=== PATIENT | male | born 1950 | race Asian ===

== ENCOUNTER 2018-10-28 19:00 | Inpatient (IN) | payer MEDICARE, OTHER ==
[~2018-10-28] VITALS: Ht 180.3 cm; Wt 62.3 kg
[2018-10-28] MEDS ORDERED: VITAMIN D250000 UNI1 ORAL (19:04)
[2018-10-28] MEDS ORDERED: CIPROFLOXA250 MG/5 M PO (19:04)
[2018-10-28] MEDS ORDERED: ISOSORBIDE MONO20 MG PO (19:04)
[2018-10-28 19:05] VITALS: BP 120/81
--- NOTE | 2018-10-28 19:05 | NUR ---
ED Nurse Note: brought in by RA 4 from restaurant due to AMS and syncope. Denies trauma and CP. BS 130. NS 300ml given by EMS; low BP;. RA 87% -> NC 4L/min and O2 sat of 93%. as per family member statment: the pt was as a dinner outing with family and the family stated the pt just felt "woozy and a little out of it." the family denies any loss of conciousness and denies head trauma. the family just thought it in the pt best intrest to call EMS. upon traig, pt was responsive, blood pressure is 120/80. the pt is able to talk back if asked any questions.
--- NOTE | 2018-10-28 19:10 | Emergency Room Report ---
History of Present Illness General Chief Complaint: Altered Mental Status Source: Patient, EMS Present Illness HPI This is a 68-year-old male with multiple histories including Parkinson, renal disease, high blood pressure to name a few. He presents with chief complaint of syncope. He was at a restaurant. He hasn't eaten yet. He stood up and became disoriented and unresponsive. Family sat him down and it did not improve. This lasted about 5-10 minutes. Per family he was unresponsive. No diaphoresis. Per EMS, initial blood pressure was systolic nausea no vomiting. No fever or chills. He was admitted last month for sepsis and UTI. Allergies: Coded Allergies: No Known Allergies (Unverified , 10/28/18) Patient History Past Medical History: see triage record, old chart reviewed, DM, HTN, renal disease Past Surgical History: other Pertinent Family History: none Social History: Denies: smoking Immunizations: other Reviewed Nursing Documentation: PMH: Agreed; PSxH: Agreed Nursing Documentation-PMH Past Medical History: No History, Except For Hx Hypertension: Yes Review of Systems Constitutional: Reports: weakness Eye: Denies: eye pain, blurred vision ENT: Denies: ear pain, nose congestion, throat swelling Respiratory: Denies: cough, shortness of breath Cardiovascular: Denies: chest pain, palpitations Gastrointestinal: Denies: abdominal pain, diarrhea, nausea, vomiting Musculoskeletal: Denies: back pain, joint pain Skin: Denies: rash Neurological: Denies: headache, numbness Endocrine: Denies: increased thirst, increased urine Hematologic/Lymphatic: Denies: easy bruising All Other Systems: negative except mentioned in HPI Physical Exam Vital Signs Date Time Temp Pulse Resp B/P (MAP) Pulse Ox O2 Delivery O2 Flow Rate FiO2 10/28/18 18:55 98.1 76 16 89/47 90 Room Air vitals with hypotension and hypoxia Sp02 EP Interpretation: reviewed, abnormal General Appearance: no apparent distress, mild distress, lethargic, Chronically Ill Head: normocephalic, atraumatic Eyes: bilateral eye PERRL, bilateral eye EOMI ENT: hearing grossly normal, normal pharynx Neck: full range of motion, supple, no meningismus Respiratory: chest non-tender, lungs clear, normal breath sounds Cardiovascular #1: regular rate, rhythm, no murmur Gastrointestinal: normal bowel sounds, non tender, no mass, no organomegaly, no bruit, non-distended Musculoskeletal: back normal, normal range of motion Neurologic: grossly normal Skin: warm/dry Medical Decision Making Diagnostic Impression: Primary Impression: Syncope Qualified Codes: R55 - Syncope and collapse Additional Impressions: CHF exacerbation Qualified Codes: I50.9 - Heart failure, unspecified Altered mental status Qualified Codes: R41.82 - Altered mental status, unspecified CKD (chronic kidney disease) Qualified Codes: N18.9 - Chronic kidney disease, unspecified ER Course Patient presents with prolonged syncope. Differential include TIA/CVA, arrhythmia, PE, dissection to name a few. He is improved. CT scan negative. No evidence of bleed. He does have renal insufficiency but this may be at baseline. Because of his multiple medical problems, age and risk factors, will admit for further monitoring. I discussed the case with Dr. Jon who will admit. EKG Diagnostic Results Rate: normal Rhythm: NSR ST Segments: other - Bifascicular block Rhythm Strip Diag. Results Rhythm Strip Time: 19:09 EP Interpretation: yes Rate: 77 Rhythm: NSR, no PVC's, no ectopy Chest X-Ray Diagnostic Results Chest X-Ray Diagnostic Results : Chest X-Ray Ordered: Yes # of Views/Limited/Complete: 1 View Indication: Shortness of Breath EP Interpretation: Yes Interpretation: no consolidation, no effusion, no pneumothorax, no acute cardiopulmonary disease Impression: No acute disease Electronically Signed by: Jean Lester MD CT/MRI/US Diagnostic Results CT/MRI/US Diagnostic Results : Imaging Test Ordered: CT head Impression Neg per radiologist Last Vital Signs Date Time Temp Pulse Resp B/P (MAP) Pulse Ox O2 Delivery O2 Flow Rate FiO2 10/28/18 18:55 98.1 76 16 89/47 90 Room Air Status: improved Jean Lester MD Oct 28, 2018 19:10
[2018-10-28 19:18] VITALS: BP 119/81
--- NOTE | 2018-10-28 19:31 | Diagnostic Imaging Report ---
EXAM: XR Chest, 1 View CLINICAL HISTORY: SYNCOPE TECHNIQUE: Frontal view of the chest. COMPARISON: No relevant prior studies available. FINDINGS: Lungs: The lungs are grossly clear. Pleural space: No plain film evidence for pneumothorax. Heart: Mild prominence of the cardiomediastinal silhouette which may at least partly be related to the portable technique. Mediastinum: See above. Bones/joints: Degenerative changes of the acromioclavicular joints. IMPRESSION: Mild prominence of the cardiomediastinal silhouette which may at least partly be related to the portable technique.
--- NOTE | 2018-10-28 19:42 | Diagnostic Imaging Report ---
EXAM: CT Head Without Intravenous Contrast CLINICAL HISTORY: AMS TECHNIQUE: Axial computed tomography images of the head/brain without intravenous contrast. CTDI is 0.15, 70.38 mGy and DLP is 1540 mGy-cm. One or more of the following dose reduction techniques were used: automated exposure control, adjustment of the mA and/or kV according to patient size, use of iterative reconstruction technique. COMPARISON: No relevant prior studies available. FINDINGS: Limitations: Evaluation is somewhat limited secondary to artifact. Brain: Areas of decreased density are seen in the white matter which are nonspecific but are likely related to small vessel ischemic changes. Cerebral atrophy. No hemorrhage. Ventricles: Unremarkable. No ventriculomegaly. Bones/joints: Unremarkable. No acute fracture. Soft tissues: Unremarkable. Sinuses: Unremarkable as visualized. No acute sinusitis. Mastoid air cells: Unremarkable as visualized. No mastoid effusion. IMPRESSION: No definite CT evidence for acute intracranial abnormality. Cerebral atrophy with probable small vessel ischemic changes.
[2018-10-28 19:53] LABS: APPEARANCE,URINE CLEAR; BILIRUBIN, URINE NEGATIVE (NEGATIVE); COLOR,URINE PALE YELLOW; GLUCOSE, URINE (UA) NEGATIVE (NEGATIVE); KETONES,URINE NEGATIVE (NEGATIVE); LEUKOCYTE ESTERASE ,URINE NEGATIVE (NEGATIVE); NITRITE,URINE NEGATIVE (NEGATIVE); PH,URINE 6.5 (4.5-8.0); PROTEIN,URINE NEGATIVE (NEGATIVE); UROBILINOGEN,URINE NORMAL MG/DL (0.0-1.0)
[2018-10-28 19:58] LABS: ANION GAP 12 mmol/L (5-15); BLOOD UREA NITROGEN 45 mg/dL (7-18); CARBON DIOXIDE 24 MMOL/L (21-32); CHLORIDE 104 MMOL/L (98-107); CREATININE 2.2 MG/DL (0.55-1.30); POTASSIUM 3.6 MMOL/L (3.5-5.1); SODIUM 140 MMOL/L (136-145)
[2018-10-28 20:05] LABS: BASOPHILS % (AUTO) 1.1 % (0.0-2.0); EOSINOPHILS % (AUTO) 5.9 % (0.0-3.0); HEMATOCRIT 33.2 % (42.0-52.0); MEAN CORPUSCULAR VOLUME 100 FL (80-99); MONOCYTES % (AUTO) 8.8 % (1.0-10.0); NEUTROPHILS % (AUTO) 79.2 % (45.0-75.0); PLATELET COUNT 159 K/UL (150-450); RED BLOOD COUNT 3.31 M/UL (4.70-6.10); RED CELL DISTRIBUTION WIDTH 11.4 % (11.6-14.8); WHITE BLOOD COUNT 8.4 K/UL (4.8-10.8)
[2018-10-28 20:12] LABS: ALANINE AMINOTRANSFERASE 9 U/L (12-78); ALBUMIN 3.2 G/DL (3.4-5.0); ALBUMIN/GLOBULIN RATIO 0.8 (1.0-2.7); ALKALINE PHOSPHATASE 51 U/L (46-116); ASPARTATE AMINO TRANSFERASE 18 U/L (15-37); BILIRUBIN,TOTAL 0.5 MG/DL (0.2-1.0); CKMB 1.3 NG/ML (0.0-3.6); CREATINE KINASE 69 U/L (26-308)
[2018-10-28 21:20] VITALS: BP 140/80
[2018-10-28 22:35] VITALS: BP_SYST 136; BP_SYST 140; BP_SYST 170; BP_DIAS 75; BP_DIAS 81; BP_DIAS 90
--- NOTE | 2018-10-28 22:35 | NUR ---
ED Nurse Note: PT is Transfered to TELE to 207. RHEA TORRES recived report. pt had no belongings to be transfered with, all belongings had left with family members. pt is alert and oriented times 4. pt has no skin issues noted. all vital signs have been stable prior to transfer. MD and receving nurse is aware of pt status, conditions, order, and vital signs during transfer.
[2018-10-28 22:43] VITALS: BP 141/82
[2018-10-28 22:45] VITALS: BP 150/87
[2018-10-28] MEDS: D5NS 1,000 ML IV SCH (22:45)
--- NOTE | 2018-10-28 22:50 | NUR ---
NURSE NOTES: Received patient from [facility] FILM SOUND COORDINATOR. patient was brought to floor via gurney without incident. Placed patient on satellite project site monitor. Skin is clean and intact with no issues. All of patients belongings sent with family from ER. Orientated patient to room and unit. Patient performs in and out catheterization which i made [place] aware and was given orders to continue while here in the hospital. Bed is inlowest position with call light within reach. Will continue to monitor and follow plan of care.
[2018-10-29] VITALS: BP 126/76
[2018-10-29 04:00] VITALS: BP 158/73
--- NOTE | 2018-10-29 07:30 | NUR ---
NURSE NOTES: Received report from RHEA Wallace. Patient is in stable condition. No acute distress/SOB noted. Will continue plan of care.
--- NOTE | 2018-10-29 07:44 | NUR ---
HAND-OFF: Report given to Manuelito WILKERSON.
[2018-10-29 08:00] VITALS: BP 157/81
[2018-10-29] MEDS: Aspirin Baby 81mg NG SCH (09:33)
[2018-10-29] MEDS: Heparin 5000 units/ml inj SUBQ SCH ×2 (09:33→20:53)
[2018-10-29 09:35] LABS: ALANINE AMINOTRANSFERASE 11 U/L (12-78); ALBUMIN 3.1 G/DL (3.4-5.0); ALBUMIN/GLOBULIN RATIO 0.9 (1.0-2.7); ALKALINE PHOSPHATASE 47 U/L (46-116); ANION GAP 9 mmol/L (5-15); ASPARTATE AMINO TRANSFERASE 19 U/L (15-37); BILIRUBIN,TOTAL 0.4 MG/DL (0.2-1.0); BLOOD UREA NITROGEN 42 mg/dL (7-18); CALCIUM 8.5 MG/DL (8.5-10.1); CARBON DIOXIDE 27 MMOL/L (21-32); CHLORIDE 107 MMOL/L (98-107); SODIUM 143 MMOL/L (136-145)
--- NOTE | 2018-10-29 11:15 | History and Physical Report ---
DATE OF ADMISSION: 10/28/2018 CHIEF COMPLAINT: Syncope. HISTORY OF PRESENT ILLNESS: The patient is a pleasant 68-year-old male. He has a history of hypertensive heart disease, rheumatic heart disease, Parkinson disease, who presented from a restaurant after a syncopal episode. According to the patient, he was at , he has just had a martini and was ordering food when he had a syncopal episode. He awoke in the ambulance. He denies any chest pain or shortness of breath, but when he awoke he did have some neck pain. It is since then resolved. On evaluation in the emergency room at [facility], he had a CAT scan of the head that showed no evidence of any stroke or bleed. His laboratories are significant for creatinine of 2.2, elevated natriuretic peptide level of 2200. His troponin was 0.028. EKG showed a right bundle-branch block and a left anterior fascicular block. He is now admitted for further evaluation and care. PAST MEDICAL HISTORY: As above. PAST SURGICAL HISTORY: None. CURRENT MEDICATIONS: Reconciled and reviewed. ALLERGIES: None. FAMILY HISTORY: Significant for a father, who had nasopharyngeal carcinoma and a mother with cervical cancer. SOCIAL HISTORY: The patient has a 40-pack year of history of smoking, but quit over 20 years ago. Drinks socially. No drugs. REVIEW OF SYSTEMS: GENERAL: No fever or chills. HEENT: No headaches or visual changes. CARDIOPULMONARY: No chest pain or shortness of breath. GASTROINTESTINAL: No nausea or vomiting. GENITOURINARY: No urgency or frequency. MUSCULOSKELETAL: No joint pain or swelling. NEUROLOGIC: No evidence of seizures. PHYSICAL EXAMINATION: VITAL SIGNS: Temperature 98.4, pulse 61, respirations 20, and blood pressure 157/81. GENERAL: The patient is well-developed male, in no apparent distress. HEART: Regular rate and rhythm. LUNGS: Clear. ABDOMEN: Soft, nontender, and nondistended. EXTREMITIES: Without clubbing, cyanosis, or edema. LABORATORY AND DIAGNOSTIC DATA: Labs showed sodium 140, potassium 3.6, chloride 104, bicarb 24, BUN 45, creatinine 2.2. Troponin 0.028. Natriuretic peptide level 2500. White count 8, hemoglobin 11, hematocrit 33, platelets 159. Chest x-ray was clear. Head CT also was negative. ASSESSMENT: This is a pleasant male with history of Parkinson disease, history of rheumatic fever, hypertension, admitted with complaints of syncope, suspect vasovagal, cannot rule out some component of possible dehydration. PLAN: Monitor on telemetry. Cardiology consultation. Baby aspirin. We will check an echo and a carotid duplex. Check orthostatics. Gentle hydration. Follow up repeat troponin and creatinine. Plan of care was discussed with the patient at the bedside and he is in agreement. Franklin Jon M.D. DR: CHUCKIE JOB#: [id number] CC:
[2018-10-29] MEDS: D5NS 1,000 ML IV SCH (11:50)
[2018-10-29 12:00] VITALS: BP 182/80
[2018-10-29] MEDS ORDERED: MIRALAX17 G2 ORAL ×2 (13:39→14:05)
[2018-10-29] MEDS ORDERED: ISOSORBIDE MONO20 MG PO (13:55)
[2018-10-29] MEDS ORDERED: COREG6.25 MG ORAL (14:01)
[2018-10-29] MEDS ORDERED: FUROSEMIDE20 M1 ORAL (14:01)
[2018-10-29] MEDS ORDERED: LOSARTAN POTASS25 M1 PO (14:01)
[2018-10-29] MEDS ORDERED: FENOFIBRATE145 M1 ORAL (14:01)
[2018-10-29] MEDS ORDERED: AMANTADINE50 MG/5 ML ORAL (14:04)
[2018-10-29] MEDS ORDERED: AZILECT1 MG PO (14:04)
[2018-10-29] MEDS ORDERED: SIMVASTATIN20 MG ORAL (14:04)
[2018-10-29] MEDS ORDERED: Miralax 17gm pkt ORAL PRN (15:22)
[2018-10-29 16:00] VITALS: BP 165/78
[2018-10-29] MEDS ORDERED: Losartan 25mg tab ORAL SCH (17:00)
--- NOTE | 2018-10-29 17:13 | Cardiology Progress Note ---
Assessment/Plan Assessment/Plan The patient is seen and examined, full consult note will be dictated. Objective Last 24 Hour Vital Signs Date Time Temp Pulse Resp B/P (MAP) Pulse Ox O2 Delivery O2 Flow Rate FiO2 10/29/18 16:33 165/78 10/29/18 16:00 98.0 60 18 165/78 (107) 100 10/29/18 12:10 67 10/29/18 12:05 63 10/29/18 12:00 59 10/29/18 12:00 98.1 62 20 182/80 (114) 97 10/29/18 12:00 62 10/29/18 10:18 Nasal Cannula 2.0 10/29/18 08:00 65 10/29/18 08:00 98.4 61 20 157/81 (106) 99 10/29/18 06:46 60 10/29/18 04:43 70 68 77 10/29/18 04:00 78 10/29/18 04:00 96.8 70 18 158/73 (101) 99 10/29/18 00:00 78 10/29/18 00:00 96.9 92 18 126/76 (93) 95 10/28/18 23:57 Nasal Cannula 2.0 10/28/18 22:45 97.2 91 18 150/87 (108) 100 10/28/18 22:43 92 10/28/18 22:43 98.1 76 16 141/82 100 Nasal Cannula 5.0 10/28/18 22:35 98.1 74 16 170/90 100 Nasal Cannula 5.0 100 10/28/18 22:35 98.1 74 16 170/90 100 Nasal Cannula 5.0 100 140/81 136/75 10/28/18 21:59 170/90 10/28/18 21:20 98.1 74 16 140/80 100 Nasal Cannula 5.0 10/28/18 19:18 98.1 81 16 119/81 100 Nasal Cannula 5.0 10/28/18 19:05 76 16 Room Air 100 10/28/18 19:05 98.1 74 16 120/81 90 Room Air 10/28/18 18:55 98.1 76 16 89/47 90 Room Air Intake and Output 10/28/18 10/29/18 19:00 07:00 Output Total 1450 ml Balance -1450 ml Output Urine Total 1450 ml # Voids 1 Laboratory Tests Test 10/28/18 19:10 10/28/18 19:15 10/29/18 08:05 White Blood Count 8.4 K/UL (4.8-10.8) Red Blood Count 3.31 M/UL (4.70-6.10) L Hemoglobin 11.0 G/DL (14.2-18.0) L Hematocrit 33.2 % (42.0-52.0) L Mean Corpuscular Volume 100 FL (80-99) H Mean Corpuscular Hemoglobin 33.1 PG (27.0-31.0) H Mean Corpuscular Hemoglobin Concent 33.0 G/DL (32.0-36.0) Red Cell Distribution Width 11.4 % (11.6-14.8) L Platelet Count 159 K/UL (150-450) Mean Platelet Volume 5.4 FL (6.5-10.1) L Neutrophils (%) (Auto) 79.2 % (45.0-75.0) H Lymphocytes (%) (Auto) 5.0 % (20.0-45.0) L Monocytes (%) (Auto) 8.8 % (1.0-10.0) Eosinophils (%) (Auto) 5.9 % (0.0-3.0) H Basophils (%) (Auto) 1.1 % (0.0-2.0) Prothrombin Time 11.0 SEC (9.30-11.50) Prothromb Time International Ratio 1.0 (0.9-1.1) Activated Partial Thromboplast Time 29 SEC (23-33) Sodium Level 140 MMOL/L (136-145) 143 MMOL/L (136-145) Potassium Level 3.6 MMOL/L (3.5-5.1) 3.0 MMOL/L (3.5-5.1) L Chloride Level 104 MMOL/L (98-107) 107 MMOL/L (98-107) Carbon Dioxide Level 24 MMOL/L (21-32) 27 MMOL/L (21-32) Anion Gap 12 mmol/L (5-15) 9 mmol/L (5-15) Blood Urea Nitrogen 45 mg/dL (7-18) H 42 mg/dL (7-18) H Creatinine 2.2 MG/DL (0.55-1.30) H 2.0 MG/DL (0.55-1.30) H Estimat Glomerular Filtration Rate 29.9 mL/min (>60) 33.4 mL/min (>60) Glucose Level 118 MG/DL (74-106) H 92 MG/DL (74-106) Calcium Level 9.0 MG/DL (8.5-10.1) 8.5 MG/DL (8.5-10.1) Total Bilirubin 0.5 MG/DL (0.2-1.0) 0.4 MG/DL (0.2-1.0) Aspartate Amino Transf (AST/SGOT) 18 U/L (15-37) 19 U/L (15-37) Alanine Aminotransferase (ALT/SGPT) 9 U/L (12-78) L 11 U/L (12-78) L Alkaline Phosphatase 51 U/L (46-116) 47 U/L (46-116) Total Creatine Kinase 69 U/L (26-308) Creatine Kinase MB 1.3 NG/ML (0.0-3.6) Creatine Kinase MB Relative Index 1.8 Troponin I 0.028 ng/mL (0.000-0.056) 0.053 ng/mL (0.000-0.056) Pro-B-Type Natriuretic Peptide 2514 pg/mL (0-125) H Total Protein 7.0 G/DL (6.4-8.2) 6.4 G/DL (6.4-8.2) Albumin 3.2 G/DL (3.4-5.0) L 3.1 G/DL (3.4-5.0) L Globulin 3.8 g/dL 3.3 g/dL Albumin/Globulin Ratio 0.8 (1.0-2.7) L 0.9 (1.0-2.7) L Urine Color Pale yellow Urine Appearance Clear Urine pH 6.5 (4.5-8.0) Urine Specific Foster 1.005 (1.005-1.035) Urine Protein Negative (NEGATIVE) Urine Glucose (UA) Negative (NEGATIVE) Urine Ketones Negative (NEGATIVE) Urine Blood Negative (NEGATIVE) Urine Nitrite Negative (NEGATIVE) Urine Bilirubin Negative (NEGATIVE) Urine Urobilinogen Normal MG/DL (0.0-1.0) Urine Leukocyte Esterase Negative (NEGATIVE) Thyroid Stimulating Hormone (TSH) 1.861 uiU/mL (0.358-3.740) Kirk Tejada MD Oct 29, 2018 17:13
[2018-10-29] MEDS: Carvedilol 6.25mg Tab ORAL SCH (18:00)
--- NOTE | 2018-10-29 19:51 | NUR ---
HAND-OFF: Report given to RHEA Kimbrough. Patient is in stable condition. Endorsed plan of care.
--- NOTE | 2018-10-29 19:52 | NUR ---
NURSE NOTES: Received report from Radhames Silva RN. Patient in bed AAO x4 with HOB elevated at semi fowlers, no complaints of acute pain at this time. Kept clean, dry, and comfortable in bed. Able to verbalize needs and wants appropriately with no difficulty. On NC 2L and 02 sat at 96%, no SOB noted at this time. Safety precaution in place; siderails x3 up, call light within reach, bed in lowest position, brakes and alarm on at all times. Placed on continuos cardiac monitoring per protocol. Needs and wants anticipated and attended, will continue plan of care and monitor for any changes noted.
[2018-10-29 20:00] VITALS: BP 150/66
[2018-10-29] MEDS ORDERED: Imdur 30mg tab ORAL SCH (21:00)
--- NOTE | 2018-10-29 21:30 | NUR ---
NURSE NOTES: Patient on intermittent straight catheter for retention. Patient tolerated well with no complications noted. 400ml out. Will continue to monitor
[2018-10-30] VITALS: BP 143/69
[2018-10-30] MEDS: D5NS 1,000 ML IV SCH (01:25)
--- NOTE | 2018-10-30 02:30 | NUR ---
NURSE NOTES: Attempted to do Straight catherization for retention per Pt's request. Unable to place catheter through bladder, will try again in an hour to avoid further trauma.
--- NOTE | 2018-10-30 03:30 | NUR ---
NURSE NOTES: Straight cath initiated, 500 ml out. tolerated well, minimal bleeding noted.
[2018-10-30 04:00] VITALS: BP 146/74
--- NOTE | 2018-10-30 04:00 | NUR ---
NURSE NOTES: Patient in bed asleep with no distress noted. Continue plan of care
[2018-10-30] MEDS ORDERED: SINEMET 25-1001 EAC1 ORAL (07:10)
--- NOTE | 2018-10-30 07:13 | NUR ---
HAND-OFF: Report given to EomRadhames RN. Patient in stable condition, endorsed plan of care.
--- NOTE | 2018-10-30 07:15 | NUR ---
NURSE NOTES: Received report from RHEA Kimbrough. Patient is in stable condition. No acute distress/SOB noted. Will continue plan of care.
[2018-10-30] MEDS ORDERED: Lactulose 20gm/30ml UDC ORAL PRN (07:30)
[2018-10-30 08:00] VITALS: BP 132/64
[2018-10-30] MEDS ORDERED: Amantadine 100mg cap ORAL SCH (09:00)
[2018-10-30] MEDS ORDERED: Losartan 25mg tab ORAL SCH (09:00)
[2018-10-30] MEDS: Aspirin Baby 81mg NG SCH (09:26)
[2018-10-30] MEDS: Carvedilol 6.25mg Tab ORAL SCH ×2 (09:26→12:45)
[2018-10-30] MEDS: Levodopa/Carbidopa 25/100 tab ORAL SCH ×2 (09:26→12:45)
[2018-10-30] MEDS: Heparin 5000 units/ml inj SUBQ SCH (09:32)
--- NOTE | 2018-10-30 09:39 | NUR ---
REHAB MED PT NOTE CONSULT RECEIVED, EZE COMPLTED, PATIENT WILL BENEFIT FROM SKILLED PT DURING STAY FOR RETURN TO [facility]. RECOMMEND HOME AT NE WITH PT. PLAN OF CARE INITIATED. KRISTIN ORDAZ PT DPT Addendum: 10/30/18 at 0940 by KRISTIN ORDAZ PT Amended: Links added.
--- NOTE | 2018-10-30 11:00 | Discharge Summary ---
DATE OF ADMISSION: 10/28/2018 DATE OF DISCHARGE: 10/30/2018 ADMISSION DIAGNOSES: 1. Syncope. 2. Dehydration. 3. Parkinson's disease. 4. Chronic kidney disease. DISCHARGE DIAGNOSES: 1. Syncope. 2. Dehydration. 3. Parkinson's disease. 4. Chronic kidney disease. HOSPITAL COURSE: The patient is a pleasant male admitted with complaints of a syncopal episode while eating in a restaurant. He was admitted. He had serial enzymes that were negative. He was hydrated gently with IV fluids. His diuretic was discontinued. Cardiology consultation was obtained. The patient was cleared by Cardiology for discharge. 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 His Lasix has been discontinued. He has been instructed to return for any fever, for any headache, for any chest pain, dizziness, shortness of breath, and palpitations. DISCHARGE MEDICATIONS: Please see discharge medication list for discharge medications. DIET: Cardiac. ACTIVITY: Ad-lotus. Franklin Jon M.D. DR: CHUCKIE JOB#: [id number] CC:
--- NOTE | 2018-10-30 11:31 | NUR ---
NURSE NOTES: Discharge instruction given and patient verbalized understanding. No belongings noted. Removed radiation monitor and IV line. IV site clean, intact and no bleeding noted. No acute distress/SOB noted. Patient denies any pain/discomfort. Brother/Fidel Dale is at the bedside. Patient wants to go home after lunch. Will continue plan of care.
[2018-10-30 12:00] VITALS: BP 137/72
[2018-10-30 12:45] VITALS: BP 137/72
--- NOTE | 2018-10-30 12:56 | NUR ---
NURSE NOTES: Patient ate lunch 100% and in stable condition. Patient is discharged with brother via private car.
--- NOTE | 2018-10-30 15:45 | Consultation ---
DATE OF CONSULTATION: 10/29/2018 CARDIOLOGY CONSULTATION CONSULTING PHYSICIAN: Kirk Tejada M.D. REFERRING PHYSICIAN: Franklin Jon M.D. REASON FOR CONSULTATION: Management of syncope. HISTORY OF PRESENT ILLNESS: The patient is a very unfortunate 68-year-old gentleman who presents to this facility after sustaining an episode of syncope, which was preceded by presyncopal symptoms of dizziness and lightheadedness. According to the family member, he lost consciousness for about a few minutes while sitting in a chair. After discussing with the patient at the bedside, he became apparent that the patient had not been eating well for the past two to three days because of nausea associated with chronic kidney disease. He was in addition on furosemide treatment for chronic kidney disease as well. He denies any cardiac arrhythmias, coronary artery disease, or congestive heart failure in the past. He states that his Cardiology run a stress test just above within the past year and it was negative. 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 PAST MEDICAL HISTORY: Hypertensive heart disease, chronic kidney disease, rheumatic heart disease, and Parkinson disease. PAST SURGICAL HISTORY: None. ALLERGIES: None. FAMILY HISTORY: No premature coronary artery disease in the first-degree relatives. SOCIAL HISTORY: A [id number] tobacco and social drinker. No drugs. Quit tobacco about 20 years ago. REVIEW OF SYSTEMS: HEENT: Denies any headache, diplopia, or blurred vision. CONSTITUTIONAL: Denies any fever, chills, night sweats, or weight loss. He complains of generalized weakness and fatigue. CARDIOVASCULAR: Denies any chest pain, shortness of breath, PND, orthopnea, or leg swelling. Had presyncope and syncopal event. PULMONARY: Denies any cough, hemoptysis, or wheezing. GASTROINTESTINAL: Had some nausea prior to this event, been going on for about two days. Denies any GI bleed. Denies any diarrhea, but treating constipation with MiraLAX. GENITOURINARY: Denies any hematuria, dysuria, or incontinence. NEUROLOGIC: Denies any motor dysfunction, sensory deficit, and altered speech. Positive for syncope. MUSCULOSKELETAL: No myalgia or arthralgia. Ambulatory. LIST OF MEDICATIONS: Carbidopa levodopa 25/100 one tablet three times a day, MiraLAX 17 g p.o. daily, simvastatin 20 mg at bedtime, 03:52 1 mg daily, amantadine 100 mg daily, carvedilol 6.25 mg three times a day, losartan 25 mg daily, furosemide 20 mg p.o. daily, fenofibrate 145 mg daily, and isosorbide 60 mg p.o. at bedtime, vitamin D 50,000 units once weekly, and Cipro 250 mg twice a day. PHYSICAL EXAMINATION: VITAL SIGNS: At the time of arrival to the hospital, blood pressure was 89/45; however, at this time of my evaluation, blood pressure was 157/81, respirations 20, pulse of 61, temperature 98.4 degrees Fahrenheit, and O2 saturation 98% on room air. GENERAL: The patient is a very unfortunate 68-year-old gentleman, well developed, well nourished, in no apparent respiratory distress. Alert and oriented x4. HEENT: Atraumatic and normocephalic. Anicteric. Pupils are equal, round, and reactive to light and accommodation. Extraocular muscles intact. NECK: JVP less than 5 cm. No carotid bruit. Carotid upstrokes 2+ bilaterally. CARDIOVASCULAR: Normal S1 and S2. Regular rate and rhythm. A 2/6 mid systolic murmur at the left sternal border. PMI is at fourth intercoastal space in the midclavicular line. LUNGS: Clear to auscultation bilaterally. ABDOMEN: Soft, nontender, and nondistended. No hepatosplenomegaly. Positive bowel sounds. EXTREMITIES: No evidence of edema, clubbing, or cyanosis. IMAGING STUDY AND LABORATORY DATA: Chest x-ray, no acute cardiopulmonary disease. A 12-lead electrocardiogram, sinus rhythm with bifascicular block including right bundle-branch block and left anterior fascicular block. WBC is 6.4, hemoglobin 11.0, hematocrit of 33.2, and platelet count is 159,000. Sodium 140, potassium 3.6, chloride 104, bicarbonate 24, BUN 45, creatinine 2.2, glucose is 118, and calcium is 9.0. Troponin-I times 2.028 and 0.053. TSH is 1.86. ProBNP 2540. Head CT was negative. Carotid artery duplex showed normal flow velocity with no evidence of significant stenosis. ASSESSMENT AND PLAN: The patient is a very unfortunate 68-year-old gentleman with syncopal event preceded by presyncope. He is seen in Cardiology consultation at request of Dr. Jon. 1. Presyncope/syncopal event likely due to hypovolemia, precipitated by a combination of Lasix and poor p.o intake for about two to three days prior to this event. The patient had some element of acute kidney injury, i.e., prerenal azotemia in favor of hypovolemia as well. I do not believe that the patient had any cardiac arrhythmia, given the fact that no arrhythmia has been seen in the monitor and the patient has had recent ischemic workup and echocardiogram in this facility shows normal LV systolic function with LVEF approximately 55% to 60%. The patient will receive hydration and already creatinine has drifted downwards. The patient is scheduled to have a stress test in the outpatient setting with his own shipyard painter helper at [facility] located in [place], [place]. In the meantime, we will continue with monitoring manager. We will check for orthostatic vitals. CT of head and carotid artery duplex has been negative. The patient is already feeling stronger and less symptomatic with IV . 2. History of hypertensive heart disease. Continue home medications once hemodynamically stable including ARB. I would withhold in phase of recent episode of syncope. 3. History of chronic kidney disease with acute component, which is prerenal azotemia and is being treated. 4. History of Parkinson disease that can be also associated with orthostatic hypotension. I would like to thank, Dr. Jon, for the courtesy of this consultation. Kirk Tejada M.D. DR: BIANCA JOB#: [id number] CC:
--- NOTE | 2018-10-30 18:40 | Cardiology Progress Note ---
Assessment/Plan Assessment/Plan 1. Presyncope/syncopal event likely due to hypovolemia, precipitated by a combination of Lasix and poor p.o intake for about two to three days. Continue hydration, CT of head and carotid artery duplex has been negative. 2D echo has shown normal LVEF at 55-60%. 2. History of hypertensive heart disease. 3. History of chronic kidney disease. 4. History of Parkinson disease. Subjective Subjective Sinus rhythm at rate of 64. Objective Last 24 Hour Vital Signs Date Time Temp Pulse Resp B/P (MAP) Pulse Ox O2 Delivery O2 Flow Rate FiO2 10/30/18 12:45 64 137/72 10/30/18 12:00 98.1 64 21 137/72 (93) 99 10/30/18 09:26 132/64 10/30/18 09:26 65 132/64 10/30/18 09:00 Room Air 10/30/18 08:00 59 10/30/18 08:00 98.0 65 21 132/64 (86) 97 10/30/18 04:00 73 10/30/18 04:00 96.9 65 18 146/74 (98) 94 10/30/18 00:00 96.9 62 18 143/69 (93) 95 10/30/18 00:00 55 10/29/18 21:00 Nasal Cannula 2.0 10/29/18 20:51 150/66 10/29/18 20:00 98.2 59 19 150/66 (94) 94 10/29/18 20:00 58 Intake and Output 10/29/18 10/30/18 18:59 06:59 Intake Total 360 ml 240 ml Output Total 1900 ml Balance 360 ml -1660 ml Intake Oral 360 ml 240 ml Output Urine Total 1900 ml 2D Echo: LVEF 40%, RVSP 29 mmHg, Mild LVH, Grade I LVDD, HAMZAH 1.3 Objective HEENT: Atraumatic and normocephalic. Anicteric. Pupils are equal, round, and reactive to light and accommodation. Extraocular muscles intact. NECK: JVP less than 5 cm. No carotid bruit. Carotid upstrokes 2+ bilaterally. CARDIOVASCULAR: Normal S1 and S2. Regular rate and rhythm. A 2/6 mid systolic murmur at the left sternal border. PMI is at fourth intercoastal space in the midclavicular line. LUNGS: Clear to auscultation bilaterally. ABDOMEN: Soft, nontender, and nondistended. No hepatosplenomegaly. Positive bowel sounds. EXTREMITIES: No evidence of edema, clubbing, or cyanosis. Kirk Tejada MD Oct 30, 2018 18:40
[2018-11-01] MEDS ORDERED: Vitamin D 50,000 units cap ORAL SCH (09:00)
== END 2018-10-30 12:56 | disposition home or self-care (01) | DRG 641 ==
LOC: EDBD 19:00 → EMR 19:30 → EDBEDREQ 19:59 → 2E 20:34 → EDBEDREQ 20:41
DX: E86.0 Dehydration (principal); I45.2 Bifascicular block; N17.9 Acute kidney failure, unspecified; E86.1 Hypovolemia; R55 Syncope and collapse; I13.10 Hypertensive heart and chronic kidney disease without heart failure, with stage 1 through stage 4 chronic kidney disease, or unspecified chronic kidney disease; N18.9 Chronic kidney disease, unspecified; G20 Parkinson's disease; Z87.891 Personal history of nicotine dependence
CPT/HCPCS: 36415; 70450; 71045; 80053; 81003; 82550; 82553; 83880; 84443; 84484; 85025; 85610; 85730; 93005; 93306; 93880; 96374; 96375; 99285; J8499